=== PATIENT | male | born 1940 | race Caucasian/White ===

== ENCOUNTER 2018-04-01 01:19 | Outpatient (CLI) | payer MEDICARE, OTHER, SELFPAY ==
[2018-04-01 08:38] LABS: Anion Gap 7.8 mmol/L (3-11); BUN 24 mg/dL (7-18); CO2 30.2 mmol/L (21.0-32.0); CREATININE 1.67 mg/dL (0.70-1.30); Chloride 104 mmol/L (98-107); Glucose 98 mg/dL (70-100); Potassium 3.9 mmol/L (3.5-5.1); Sodium 142 mmol/L (136-145)
== END 2018-04-01 01:39 ==
PROVIDERS: PCP General Practice; Visit Provider General Practice
DX: I10 Essential (primary) hypertension (principal); Z13.1 Encounter for screening for diabetes mellitus
CPT/HCPCS: 36415; 80051; 82947; 84520; 82565

== ENCOUNTER 2018-09-15 10:51 | Outpatient (CLI) | payer MEDICARE, OTHER, SELFPAY ==
[2018-09-15 15:50] LABS: Glucose 101 mg/dL (70-100)
== END 2018-09-15 11:11 ==
PROVIDERS: PCP General Practice; Visit Provider General Practice
DX: R73.09 Other abnormal glucose (principal)
CPT/HCPCS: 36415; 82947

== ENCOUNTER 2019-02-23 17:24 | Outpatient (REF) | payer MEDICARE, OTHER, SELFPAY ==
[2019-02-23 19:00] LABS: HGB 15.4 g/dL (13.5-17.5); Mean Corp. HGB Concentration 32.8 g/dL (32.0-36.0); Mean Corpuscular Volume 94.6 fL (80-95); Mean Platelet Volume 10.8 fL (8.0-11.0); Platelet Count 234 x1000/uL (130-400); RBC 4.97 m/cumm (4.50-6.00); RBC Distribution Width 12.9 % (11.8-14.1)
[2019-02-23 19:15] LABS: COMMENT (LAB VIEW ONLY) 77.91 mg/dL; Microalb ug/mg Crea 49.7 ug/mg Cr
[2019-02-23 19:16] LABS: ALT 24 U/L (16-63); AST 17 U/L (15-37); Alkaline Phosphatase 60 U/L (46-116); Anion Gap 7.3 mmol/L (3-11); BUN 21 mg/dL (7-18); Bilirubin, Total 0.7 mg/dL (0.2-1.0); CO2 32.7 mmol/L (21.0-32.0); Calcium 9.6 mg/dL (8.5-10.1); Calculated LDL 103 mg/dL; Chloride 102 mmol/L (98-107); Cholesterol 182 mg/dL (<200); Estimated GFR 39.28 (mL/min/1.73m2); Glucose 86 mg/dL (74-106); HDL Cholesterol 47 mg/dL (40-60); Potassium 4.5 mmol/L (3.5-5.1); Sodium 142 mmol/L (136-145); Total Protein 7.5 g/dL (6.4-8.2); Triglyceride 161 mg/dL (<150)
[2019-02-23 19:20] LABS: Bilirubin Negative (Negative); Blood Negative (Negative); Clarity Clear (Clear); Glucose Negative (Negative); Ketones Negative (Negative); Leukocyte Esterase Negative (Negative); Nitrite Negative (Negative); Specific Gravity 1.015 (1.005-1.025); Urobilinogen 0.2 EU/dL (Up TO 0.2)
[2019-02-25 10:19] LABS: PSA, Screening 1.7 ng/mL (0.0-6.5)
== END 2019-02-23 17:44 ==
LOC: NCHCN 17:24
PROVIDERS: Visit Provider Nurse Practitioner Family
DX: I10 Essential (primary) hypertension (principal); Z12.5 Encounter for screening for malignant neoplasm of prostate
CPT/HCPCS: 80053; 80061; 84153; 85027; 81003; 82043; 82570

== ENCOUNTER 2019-03-04 09:24 | Outpatient (CLI) | payer MEDICARE, OTHER, SELFPAY ==
--- NOTE | 2019-03-04 15:37 | DI.US_ITS ---
EXAM: US RENAL CLINICAL HISTORY: HX NEPHROLITHIASIS Z87.442, CKD STAGE 3 N18.3 TECHNIQUE: Ultrasound performed using standard protocol. COMPARISON: RENAL COLIC WO CONTRAST from 10/20/2011 FINDINGS: Renal ultrasound performed according to the usual protocol. There are multiple bilateral renal cysts , the largest on the right measuring about 35 millimeters in diameter and the largest on the left areli suring about 36 millimeters in diameter. These appear to have been present on prior CT of 10/20/2011 . These are all simple cysts. No hydronephrosis or nephrolithiasis. Ureteral jets were noted bilaterally. Urinary bladder is unremarkable in appearance with pre and pos tvoid urinary bladder volume measurements 126 cc and 39 cc respectively. Prostatic volume is estimated at 40 cc. IMPRESSION: Multiple renal cysts noted bilaterally. No evidence of urinary tract obstruction.
== END 2019-03-04 09:44 ==
PROVIDERS: PCP Nurse Practitioner Family; Visit Provider Nurse Practitioner Family
DX: N18.3 Chronic kidney disease, stage 3 (moderate) (principal); N28.1 Cyst of kidney, acquired; Z87.442 Personal history of urinary calculi
CPT/HCPCS: 76770

== ENCOUNTER → 2019-04-02 11:25 | Outpatient (BNVA) | payer MEDICARE, OTHER, SELFPAY | PROVIDERS: PCP Nurse Practitioner Family; Visit Provider Physical Therapy Assistant | DX: Z12.11 Encounter for screening for malignant neoplasm of colon (principal); Z86.010 Personal history of colon polyps ==

== ENCOUNTER → 2019-12-23 12:58 | Outpatient (BNVA) | payer MEDICARE, OTHER, SELFPAY | PROVIDERS: PCP Nurse Practitioner Family; Referring Provider Nurse Practitioner Family; Visit Provider Physical Therapy Assistant | DX: Z12.11 Encounter for screening for malignant neoplasm of colon (principal); Z86.010 Personal history of colon polyps; R22.1 Localized swelling, mass and lump, neck; L98.9 Disorder of the skin and subcutaneous tissue, unspecified; I10 Essential (primary) hypertension ==

== ENCOUNTER 2020-01-05 02:02 | Outpatient (CLI) | payer MEDICARE, OTHER, SELFPAY ==
[2020-01-06 15:26] LABS: SARS-CoV-2 RNA Not Detected (NotDetected); SARS-CoV-2 RNA Source Nasal/Nares
== END 2020-01-05 02:22 ==
PROVIDERS: PCP Nurse Practitioner Family; Visit Provider Surgery
DX: Z11.59 Encounter for screening for other viral diseases (principal); Z01.818 Encounter for other preprocedural examination
CPT/HCPCS: U0003

== ENCOUNTER 2020-01-10 07:08 | Day surgery (SDC) | payer MEDICARE, OTHER, SELFPAY ==
--- NOTE | 2020-01-10 06:49 | W.COLOREPORT ---
Date of service: 01/10/20 Time of Service: 08:44 Colonoscopy Report Date of procedure: 01/10/20 Pre-op diagnosis general: Hx of polyps Post-op diagnosis procedure note: same (5 polyps and diverticulosis) Procedure: Colonoscopy with polypectomy Surgeon: Berenice Jasso Anesthesia proc note operative: other (General/ASA 2/Michael Cartagena CRNA) Estimated blood loss (mL): 5 Pathology: other (Transverse polyp, descending polyp, sigmoid polyp, rectal polyps x2) Complications: None Disposition: same day Indications: The patient is here for Colonoscopy pre-op. His last screening was in 2010, which was remarkable for tubular adenoma and hyperplastic polyps.He has no family history of colon cancer. He has not had any bowel habit changes. -Discussed colonoscopy bowel prep as well as the procedure. Discussed possible complications of the procedure to include bleeding, pain, perforation, missed small lesion/polyp, sore throat, aspiration and adverse reaction to the medications. Questions were answered to patient?s satisfaction. No guarantees were implied or given. Prep: Miralax/Dulcolax Procedure Start Time: 44 Procedure End Time: 09:18 Retraction Time: 25 minutes Findings: 5 polyps. One large pedunculate polyp removed with hot snare. The other 4 were small <10 cm and removed with cold forceps. Moderate Diverticulosis of the sigmoid colon Procedure Description: After informed consent was obtained the patient was taken to the procedure room and placed in a left decubitous position. Monitors were applied and a time out was done. The patients name, date of , procedure, allergies to medications and metal in their body was reviewed. The patient was then sedated. Once sedated and comfortable a rectal exam was done. External exam was normal. Internal exam revealed a normal sphincter tone and no palpable masses. The prostate felt smooth and slightly enlarged. The scope was then introduced and retro-flexed. No internal hemorrhoids were identified. The scope was then advanced to the cecum without difficulty. The ileocecal valve and appendiceal orifice were identified. The prep was adequate. The scope was then slowly retracted over 25 minutes back into the rectum. Polyps were removed with cold forceps in the transverse colon, descending colon, sigmoid colon and rectum with cold forceps. A >10 mm pedunculated polyp was removed in the rectum with hot snare. The polyp was at 4 cm. There was also moderate diverticulosis of the sigmoid colon. The scope was removed and the patient was woken up and taken back to Same day surgery in stable condition. The patient tolerated the procedure well and there were no immediate complications. Follow up: Follow up depends on final pathology
--- NOTE | 2020-01-10 06:50 | W.PM.DSUDISC ---
Discharge Plan Disposition Patient Disposition: HOME Condition: Good Discharge Details Reason For Visit: Hx of polyps Attending Provider: Berenice Jasso Primary Care Provider: Hans Anders Home Meds and New Rx's Prescriptions: Continued atenolol 50 mg tablet 50 mg PO DAILY RF: 0 allopurinol 100 mg tablet 100 mg PO DAILY RF: 0 hydrochlorothiazide 25 mg tablet 25 mg PO DAILY RF: 0 pravastatin 20 mg tablet 20 mg PO DAILY RF: 0 fluticasone propionate 110 mcg/actuation HFA aerosol inhaler 1 puff IH BID RF: 0 lisinopril 5 mg tablet 5 mg PO DAILY RF: 0 doxazosin [Cardura] 2 mg tablet 4 mg PO QHS RF: 0 albuterol sulfate [ProAir HFA] 90 mcg/actuation HFA aerosol inhaler 2 puff IH Q6H PRNRF: 0 potassium chloride 10 mEq capsule, extended release 10 meq PO QHS RF: 0 Discontinued polyethylene glycol 3350 17 gram/dose powder 238 g PO ONCE Qty: 238 RF: 0 bisacodyl [Dulcolax (bisacodyl)] 5 mg tablet,delayed release (DR/EC) 5 mg PO ONCE Qty: 4 RF: 0 Discharge Instructions Instructions: Colorectal Polyps (DC), Diverticulosis (DC) Additional Instructions: Findings: 5 polyps diverticulosis Follow up: Depends on the pathology results Please call if you develop: fevers >101.5 Nausea or Vomiting Abdominal pain that is not transient DAY SURGERY UNIT POST ENDOSCOPY INSTRUCTIONS 1. Because there will be medication in your system for the next 24 hours, you may feel a little sleepy. Your coordination will be affected. Therefore: a. Do not drive or operate dangerous equipment for 24 hours. b. Do not drink alcohol beverages for 24 hours (not even beer). c. Plan to go home and rest for the day. 2. Generally there are no restrictions on your activity after a day or so has gone by, but you may feel a bit fatigued for a few days. 3 After you arrive home you may have a light meal and return to a normal diet as you can tolerate it without feeling sick to your stomach. 4. After surgery, you may feel pain or discomfort. This should be only transient, but if it persists please contact your doctor. 5. If there are any questions regarding the findings of your procedure, please feel free to contact your doctor. 6. If you are unable to contact your doctor with a problem, contact the hospital at [phone]. 7. Continue all your regular medications unless directed otherwise. I understand the above instructions and have no questions. Signature of Patient or Responsible Adult Escort Date/Time Name of Responsible Adult Escort Signature of Nurse Date/Time Activity:: Activity as Tolerated Diet:: High Fiber diet Discharge Orders Discharge Orders: Discharge Order (Routine); Ordered 01/10/20 Ordered By: Berenice Jasso
[2020-01-10 07:15] VITALS: BP 146/76; PULSE 66; RESP 17; TEMP 36.8; O2SAT 98
[2020-01-10] MEDS: Lactated Ringers 1,000 ML 80 ML IV (07:50)
--- NOTE | 2020-01-10 08:57 | BOWEL_PTH ---
PATIENT: Dany Hearn LOC: [facility] U#:[id number] AGE/SX: 79/M ROOM: RE01/10/[address]: Berenice Jasso MD : 1940 BED: DIS: 01/10/2020 SPEC #: [id number] RECD: 01/10/20 12:39 STATUS: DAMION REQ #: [id number] LUIS EDUARDO: 01/10/20 08:[address]: Berenice Jasso DEPT: Surgical Specimen RECD BY: Bhumika Rajput ENTERED: 01/10/20 12:41 SP TYPE: Bowel OTHR DR: Hans Anders Tissues: 1 - BIOPSY BOWEL 2 - BIOPSY BOWEL 3 - BIOPSY BOWEL 4 - BIOPSY BOWEL 5 - BIOPSY BOWEL Procedures: GROSS AND MICRO LEVEL 4 Comments: [id number]
[2020-01-10 10:22] VITALS: BP 139/78; PULSE 60; RESP 17; TEMP 36.4; O2SAT 94
== END 2020-01-10 10:53 | disposition home or self-care (01) ==
LOC: SUR 07:09
PROVIDERS: PCP Nurse Practitioner Family; Visit Provider Surgery
PROC: 0DJD8ZZ Inspection of Lower Intestinal Tract, Via Natural or Artificial Opening Endoscopic (ICD-10-PCS; CPT 45378; principal; 2020-01-10 08:15)
DX: Z12.11 Encounter for screening for malignant neoplasm of colon (principal); D12.8 Benign neoplasm of rectum; D12.3 Benign neoplasm of transverse colon; K62.1 Rectal polyp; K63.5 Polyp of colon; K57.30 Diverticulosis of large intestine without perforation or abscess without bleeding; Z86.010 Personal history of colon polyps; I10 Essential (primary) hypertension; J45.909 Unspecified asthma, uncomplicated
CPT/HCPCS: 45385; 45380; 88305; J2001

== ENCOUNTER 2020-03-10 16:34 | Outpatient (REF) | payer MEDICARE, OTHER, SELFPAY ==
[2020-03-10 18:40] LABS: HGB 15.2 g/dL (13.5-17.5); MCH 31.7 pg (27.0-33.0); MCV 95.8 fL (80-95); MPV 10.8 fL (8.0-11.0); Platelet Count 230 10^3/uL (130-400); RDW 12.2 % (11.8-14.1); RDW-SD 43.5 fL; WBC 8.69 10^3/uL (4.4-10.8)
[2020-03-13 05:12] LABS: Vitamin D 25 Total 33.7 ng/ml (30-100)
== END 2020-03-10 16:54 ==
LOC: NCHCN 16:34
PROVIDERS: PCP Nurse Practitioner Family; Visit Provider Nurse Practitioner Family
DX: I10 Essential (primary) hypertension (principal); N18.30 Chronic kidney disease, stage 3 unspecified; L29.9 Pruritus, unspecified
CPT/HCPCS: 82306; 85027

== ENCOUNTER 2020-09-04 13:43 | Outpatient (REF) | payer MEDICARE, SELFPAY ==
[2020-09-04 16:08] LABS: BUN 20 mg/dL (7-18); CREATININE 1.7 mg/dL (0.70-1.30); Calcium 9.3 mg/dL (8.5-10.1); Estimated GFR 39.18 (mL/min/1.73m2); Glucose 115 mg/dL (74-106)
[2020-09-04 16:09] LABS: Anion Gap 4.5 mmol/L (3-11); CO2 30.5 mmol/L (21.0-32.0); Chloride 105 mmol/L (98-107); Potassium 4.1 mmol/L (3.5-5.1); Sodium 140 mmol/L (136-145)
== END 2020-09-04 13:44 | disposition home or self-care (01) ==
LOC: NCHCN 13:43
PROVIDERS: PCP Nurse Practitioner Family; Visit Provider Physician Assistant
DX: N18.30 Chronic kidney disease, stage 3 unspecified (principal)
CPT/HCPCS: 80048

== ENCOUNTER → 2020-09-11 | Outpatient (CLI) | payer MEDICARE, OTHER, SELFPAY ==
--- NOTE | 2020-09-11 13:56 | DI.US_ITS ---
APPROVED REPORT EXAM: Comprehensive 2D, Doppler, and color-flow Echocardiogram Patient Location: Out-Patient Kaitara Taraka: Jalyn Medley RDCS (AE) Indications: Heart Murmur Other Information Study Quality: Adequate Conclusion Left Ventricle : The left ventricle is normal size. The left ventricular ejection fraction is within the normal range. There is normal left ventricular wall thickness. There is normal LV segmental wall motion. The left ventricular diastolic function is normal. LVEF is 60%. Right Ventricle : The right ventricle is normal size. The right ventricular systolic function is norm al. The RVSP is 25.5mmHg. Atria : The left atrium size is normal. The right atrium size is normal. Aortic Valve : The aortic valve is normal in structure. Aortic valve is trileaflet. Mild aortic regur gitation. There is no aortic valvular stenosis. Great Vessels : The aortic root is normal in size. The ascending aorta is normal in size. Aortic arch is not well visualized. IVC is normal in size and collapses >50% with inspiration. Please see remainder of study for further details. Wall motion Left Ventricle The left ventricle is normal size. The left ventricular ejection fraction is within the normal range. There is normal left ventricular wall thickness. There is normal LV segmental wall motion. The left ventricular diastolic function is normal. There is no ventricular septal defect visualized. LVEF is 6 0%. Right Ventricle The right ventricle is normal size. The right ventricular systolic function is normal. The RVSP is 25 .5mmHg. Atria The left atrium size is normal. The right atrium size is normal. The interatrial septum is intact wit h no evidence for an atrial septal defect. Aortic Valve The aortic valve is normal in structure. Aortic valve is trileaflet. There is no aortic valvular sten osis. Mild aortic regurgitation. Mitral Valve Mild mitral annular calcification. No evidence of mitral valve stenosis. Trace mitral regurgitation. Tricuspid Valve The tricuspid valve is normal in structure. There is no tricuspid valve stenosis. Trace tricuspid reg urgitation. Pulmonic Valve The pulmonary valve is normal in structure. There is no pulmonic valvular stenosis. Trace pulmonic re gurgitation. Great Vessels The aortic root is normal in size. The ascending aorta is normal in size. Aortic arch is not well vis ualized. IVC is normal in size and collapses >50% with inspiration. Pericardium There is no pericardial effusion. 2D Dimensions IVSD d PLAX 0.87 cm M: 0.6-1.2 LV Vol A2C d MOD 94.3 mL LVPW d PLAX 0.86 cm M: 0.6 - 1.2 LV Vol A4C d MOD 90.9 mL LVID d PLAX 4.32 cm M: 4.2 - 5.8 LA vol/ BSA A2C s A-L 18.1 mL/m2 LVDs 2.80 cm M: 2.5 - 4.0 LA vol/ BSA A4C s A-L 13.7 mL/m2 Ao Root d 3.04 cm M: 3.1 - 3.7 LA Vol/ BSA Biplane s A-L 16.2 mL/m2 RA Area A4C 11.79 cm2 LA Area A4C s MOD 11.92 cm2 RA Vol/ BSA A4C s A-L 13.8 mL/m2 LA Area A2C s MOD 14.05 cm2 Ao Asc Diam d 3.45 cm M: 2.6 - 3.4 LV EF A4C MOD 61.4 % LV EF Teichholz 63.8 % LV EF A2C MOD 60.6 % LVEF (Rey's) 60.04 % M: 52 - 72 LV EF Biplane MOD 60.0 % LV Volume 71.14 mL M: 62 - 150 SV 56.49 mL LV Volume Index 36.48 mL/m2 M: 34 - 74 SV Index 28.93 mL/m2 LV Vol Biplane MOD 94.1 mL FS 34.40 % M-Mode TAPSE 3.16 cm (M/F) >1.7 LV Diastology MV E' medial 0.114 (>0.07 m/s) E/A Ratio 1.0 LV E/e MED 7.00 (<14) MV E Vmax 0.80 (0.4-1.3 m/s) MV E' lateral 0.076 (>0.1 m/s) MV A Vmax 0.80 (0.4-1.3 m/s) LV E/e LAT 10.55 (<14) MV E/A Ratio 0.95 MV E/E' medial 7.04 MV E/E' lateral 10.56 Aortic Valve LVOT Area 3.12 cm2 AoV Area Vmax 2.36 cm2 LVOT Vmax 1.05 m/s AoV Area/ BSA (Vmax) 1.21 cm2/m2 LVOT Mean Thomas. 0.66 m/s DUSTY Mean Thomas. 2.17 cm2 LVOT Peak Grad 4.4 mmHg DUSTY Mean Thomas. Index 1.11 cm2/m2 LVOT Mean Grad 2.1 mmHg AR DT 2136 msec LVOT VTI 0.222 m AR PHT 619 msec LVOT Diam s 1.95 cm AoV Vmax 1.39 m/s Velocity Ratio 0.75 AoV Mean Thomas. 0.95 m/s AoV Peak Grad 7.7 mmHg LVOT SV 69.37 mL AoV Mean Grad 4.4 mmHg AoV VTI 0.264 m AoV Area VTI 2.63 cm2 AoV Area/ BSA (VTI) 1.35 cm/m2 Mitral Valve MV DT 201 (160-240 msec) MV PHT 58 msec MV Area PHT 3.77 cm2 MV VTI 0.322 m MV Area VTI 2.15 (4.0-6.0 cm2) Pulmonary Valve PV Vmax 1.25 (0.5-1.5 m/s) RVOT Peak Gr. 2.48 mmHg PV Peak Grad 6.2 mmHg RVOT Mean Gr. 1.15 mmHg PV Mean Grad 3.0 mmHg RVOT VTI 0.178 m PV VTI 0.256 m RVOT Vmax 0.79 m/s Tricuspid Valve TR Peak Grad 22.4 mmHg TR Vmax 2.37 m/s RA Pressure 3.00 mmHg RVSP (TR) 25.5 mmHg
== END ==
PROVIDERS: PCP Nurse Practitioner Family; Visit Provider Physician Assistant
DX: R01.1 Cardiac murmur, unspecified (principal); I35.1 Nonrheumatic aortic (valve) insufficiency
CPT/HCPCS: 93306

== ENCOUNTER 2020-09-19 01:30 | Outpatient (CLI) | payer MEDICARE, SELFPAY ==
--- NOTE | 2020-09-19 | DI.US_ITS ---
Exam(s) US AAA SCREENING EXAM: US AAA SCREENING CLINICAL HISTORY: SCREENING FOR AAA,CARDIOVASCULAR,Z13.6 COMPARISON: No exams were available for comparison FINDINGS: Abdominal Aorta: Maximal diameter 2.9 cm. Iliacs: Right: 1 x 1 cm Left: 1 x 1 cm IMPRESSION: No evidence of abdominal aortic aneurysm. DATA REPOSITORY:
== END 2020-09-19 01:50 ==
PROVIDERS: PCP Nurse Practitioner Family; Visit Provider Physician Assistant
DX: Z13.6 Encounter for screening for cardiovascular disorders (principal)
CPT/HCPCS: 76706

== ENCOUNTER → 2020-11-16 12:48 | Outpatient (BNVA) | payer MEDICARE, SELFPAY | PROVIDERS: PCP Nurse Practitioner Family; Referring Provider Nurse Practitioner Family; Visit Provider Physical Therapy Assistant | DX: Z12.11 Encounter for screening for malignant neoplasm of colon (principal); I12.9 Hypertensive chronic kidney disease with stage 1 through stage 4 chronic kidney disease, or unspecified chronic kidney disease; N18.9 Chronic kidney disease, unspecified; Z86.010 Personal history of colon polyps ==

== ENCOUNTER 2020-12-01 01:44 | Outpatient (CLI) | payer MEDICARE, OTHER, SELFPAY ==
[2020-12-01 16:19] LABS: Source Nasal/Nares
[2020-12-01 21:58] LABS: COVID-19 PCR Negative (Negative)
== END 2020-12-01 01:45 | disposition home or self-care (01) ==
LOC: LBO 01:45
PROVIDERS: PCP Physician Assistant; Visit Provider Surgery
DX: Z20.822 Contact with and (suspected) exposure to COVID-19 (principal); Z01.818 Encounter for other preprocedural examination
CPT/HCPCS: 87635

== ENCOUNTER 2020-12-04 07:07 | Day surgery (SDC) | payer MEDICARE, OTHER, SELFPAY ==
--- NOTE | 2020-12-04 06:37 | COLE_ITS ---
Colonoscopy Report Date of procedure: 12/04/20 Pre-op diagnosis general: Hx of polyps with High Grade dysplacia Post-op diagnosis procedure note: other (polyps and diverticulosis) Procedure: Colonoscopy with polypectomy Surgeon: Berenice Jasso Anesthesia Type: General:No Airway (Jennifer Vaca,MEENU/ Nikkie curtis CRNA) Estimated blood loss (mL): 3 Pathology: other (Transverse, descending, sigmoid x4 and rectal polyps x4) Complications: None Disposition: same day Indications: The patient is here for Colonoscopy pre-op. His last screening was in 2019, which was remarkable for sessile serrated polyp and tubular adenomatous polyp with high grade dysplasia He has no family history of colon cancer. He has not had any bowel habit changes. -Discussed colonoscopy bowel prep as well as the procedure. Discussed possible complications of the procedure to include bleeding, pain, perforation, missed small lesion/polyp, sore throat, aspiration and adverse reaction to the medications. Questions were answered to patient?s satisfaction. No guarantees were implied or given. Prep: Miralax/Dulcolax Procedure Start Time: 08:24 Procedure End Time: 08:57 Retraction Time: 22 minutes Findings: multiple small sessile polyps, most likely benign Moderate diverticulosis Procedure Description: After informed consent was obtained the patient was taken to the procedure room and placed in a left decubitous position. Monitors were applied and a time out was done. The patients name, date of , procedure, allergies to medications and metal in their body was reviewed. The patient was then sedated. Once sedated and comfortable a rectal exam was done. External exam was normal. Internal exam revealed a normal sphincter tone and no palpable masses. The prostate felt smooth. The scope was then introduced and retro-flexed. No internal hemorrhoids, polyps or masses were identified on retro-flexion. The scope was then advanced to the cecum without difficulty. The ileocecal vlave and appendiceal orifice were identified. The prep was good. The scope was then slowly retracted over 22 minutes back into the rectum. Polyps were removed with cold forceps in the Transverse colon, descending colon, sigmoid colon x4 and rectum x3. . There was moderate descending and sigmoid diverticulosis noted. The scope was removed and the patient was woken up and taken back to Same day surgery in stable condition. The patient tolerated the procedure well and there were no immediate compl ications. Follow up: The patient should follow up in 3 years unless they develop changes in bowel habits or other new gastrointestinal complaints.
--- NOTE | 2020-12-04 06:38 | W.PM.DSUDISC ---
Discharge Plan Disposition Patient Disposition: HOME Condition: Good Discharge Details Reason For Visit: Colonoscopy Attending Provider: Berenice Jasso Primary Care Provider: Guido Woods Home Meds and New Rx's Prescriptions: Continued allopurinol 100 mg tablet 100 mg PO DAILY RF: 0 hydrochlorothiazide 25 mg tablet 25 mg PO DAILY RF: 0 pravastatin 20 mg tablet 20 mg PO HS RF: 0 fluticasone propionate 110 mcg/actuation HFA aerosol inhaler 1 puff IH BID RF: 0 lisinopril 5 mg tablet 5 mg PO DAILY RF: 0 doxazosin [Cardura] 2 mg tablet 4 mg PO QHS RF: 0 potassium chloride 10 mEq capsule, extended release 10 meq PO QHS RF: 0 saw palmetto 450 mg capsule 900 mg PO DAILY RF: 0 atenolol 50 mg tablet 50 mg PO DAILY RF: 0 lidocaine HCl [Lidocaine Plus] 4 % Cream 1 applic TOPICAL BID PRNRF: 0 Discontinued polyethylene glycol 3350 17 gram/dose powder 238 g PO ONCE Qty: 238 RF: 0 bisacodyl [Dulcolax (bisacodyl)] 5 mg tablet,delayed release (DR/EC) 5 mg PO ONCE Qty: 4 RF: 0 Discharge Instructions Instructions: Diverticulosis (DC) Additional Instructions: Findings: multiple small sessile polyps Diverticulosis Follow up: 3 years Please call if you develop: fevers >101.5 Nausea or Vomiting Abdominal pain that is not transient Rectal bleeding that is more then a tbsp A hard abdomen and inability to pass gas DAY SURGERY UNIT POST ENDOSCOPY INSTRUCTIONS Instructions for everyone who is given Anesthesia: For your safety, please do the following for the next 24 Hours: a. Do not drive or operate dangerous equipment b. Do not drink alcohol beverages or use any recreational drugs for the first 24 hours or while taking pain medications. The medications in your body may have a reaction that can be dangerous. c. Do not make any important decisions or sign any important papers 1. Generally there are no restrictions on your activity after a day or so has gone by, but you may feel a bit fatigued for a few days. 2. After you arrive home you may have a light meal and return to a normal diet as you can tolerate it without feeling sick to your stomach. 3. After surgery, you may feel pain or discomfort. This should be only transient, but if it persists please contact your doctor. 4. If there are any questions regarding the findings of your procedure, please feel free to contact your doctor. 6. If you are unable to contact your doctor with a problem, contact the hospital at [phone]. 7. Continue all your regular medications unless directed otherwise. I understand the above instructions and have no questions. Signature of Patient or Responsible Adult Escort Date/Time Name of Responsible Adult Escort Signature of Nurse Date/Time Activity:: Activity as Tolerated Diet:: As Tolerated Discharge Orders Discharge Orders: Discharge Order (Routine); Ordered 12/04/20 Ordered By: Berenice Jasso
[2020-12-04 07:42] VITALS: BP 139/67; PULSE 59; RESP 16; TEMP 36.6; O2SAT 98
[2020-12-04] MEDS: Lactated Ringers 1,000 ML 80 ML IV (07:55)
--- NOTE | 2020-12-04 08:10 | W.ANESPRE ---
General Info Date of Service Date Performed: 12/04/20 Height: 5 ft 9 in Weight: 80.1 kg Body Mass Index (BMI): 26.0 Surgical Procedure: Operation Date: 12/04/20 08:20 Proposed Procedures Side Surgeon p Colonoscopy Berenice Jasso MD Meds Allergies and Home Medications Allergies Allergy/AdvReac Type Severity Reaction Status Date / Time No Known Allergies Allergy Verified 12/04/20 07:34 Home Medication Medication Instructions Recorded doxazosin 2 mg tablet 4 mg PO QHS tab 03/11/19 fluticasone propionate 110 1 puff IH BID 03/11/19 mcg/actuation HFA aerosol inhaler lisinopril 5 mg tablet 5 mg PO DAILY 03/11/19 allopurinol 100 mg tablet 100 mg PO DAILY 04/02/19 hydrochlorothiazide 25 mg tablet 25 mg PO DAILY 04/02/19 pravastatin 20 mg tablet 20 mg PO HS 04/02/19 potassium chloride 10 mEq 10 meq PO QHS cap 12/23/19 capsule,extended release atenolol 50 mg tablet 50 mg PO DAILY 06/27/20 saw palmetto 450 mg capsule 900 mg PO DAILY cap 06/27/20 bisacodyl 5 mg tablet,delayed 5 mg PO ONCE #4 tab 11/20/20 release polyethylene glycol 3350 17 238 g PO ONCE #238 g 11/20/20 gram/dose oral powder lidocaine HCl [Lidocaine Plus] 1 applic TOPICAL BID PRN 12/04/20 Current Visit Medications: Current Medications Generic Name Dose Route Start Last Admin Trade Name Freq PRN Reason Stop Dose Admin Hyoscyamine Sulfate 0.125 mg 12/04/20 06:39 Hyoscyamine 0.125 Mg Sl/Oral/Chew SL DIRECTED PRN Ringer's Solution 1,000 mls @ 80 mls/hr 12/04/20 06:00 12/04/20 07:55 IV 12/31/20 23:59 80 mls/hr INFUSION KAMLESH Administration IV Miscellaneous Supplies 1 each 12/04/20 06:00 Iv Access IV 12/31/20 23:59 DIRECTED KAMLESH Ondansetron HCl 4 mg 12/04/20 06:39 Ondansetron 4 Mg/2 Ml Vial IVP Q4H PRN PRN Nausea / Vomiting Sodium Chloride 0 ml 12/04/20 06:00 Normal Saline Flush 10 Ml Syr IV 12/31/20 23:59 PRN PRN Sodium Chloride 0 ml 12/04/20 06:00 Normal Saline 10 Ml Vial IJ 12/31/20 23:59 DIRECTED PRN Sterile Water 0 ml 12/04/20 06:00 Water,Injection,Sterile 10 Ml Vial IJ 12/31/20 23:59 DIRECTED PRN PFSH Active Problems Active Problems: Problem Status Onset Code Neck mass R22.1 Hyperplastic colon polyp K63.5 Sessile colonic polyp K63.5 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 Itching L29.9 CKD (chronic kidney disease) stage 3, GFR 30-59 ml/min N18.30 Screening for colon cancer Z12.11 Medical History Medical History Adenomatous colon polyp Asthma, chronic Degenerative joint disease Gout History of dog bite History of nephrolithiasis Hyperlipidemia Hypertension Nephrolithiasis Surgical History Surgical History (Updated 12/04/20 @ 07:34 by Indira Penn) Hx of colonoscopy Tobacco Smoking/Tobacco Use Status: Former Tobacco Use Alcohol Alcohol Intake: current Alcohol intake frequency: holidays/special occasions only Substance Use Substance use type: does not use Vital Signs and Lab Results Vital Signs Most Recent Vital Signs in EMR: Most Recent Vital Signs Temp Pulse Resp BP Pulse Ox 36.6 C 59 L 16 139/67 98 12/04/20 07:42 12/04/20 07:42 12/04/20 07:42 12/04/20 07:42 12/04/20 07:42 Lab Results Blood Type / Crossmatch: No Data to Display Complete Blood Count: No Data to Display Complete Metabolic Panel: No Data to Display Liver Function Panel: No Data to Display Coagulation Panel: No Data to Display Cardiac Panel: No Data to Display Arterial Blood Gas: No Data to Display Venous Blood Gas: No Data to Display Pancreas Panel: No Data to Display Thyroid Panel: No Data to Display Infectious Disease: Coronavirus (COVID-19)(PCR) Negative (Negative) 12/01/20 10:33 12/01/20 Coronavirus 2019 Source Nasal/Nares 12/01/20 10:33 12/01/20 Blood Cultures: No Data to Display Toxicology Panel: No Data to Display Imaging and Studies Imaging and Studies Echocardiogram Summary: Conclusion Left Ventricle : The left ventricle is normal size. The left ventricular ejection fraction is within the normal range. There is normal left ventricular wall thickness. There is normal LV segmental wall motion. The left ventricular diastolic function is normal. LVEF is 60%. Right Ventricle : The right ventricle is normal size. The right ventricular systolic function is normal. The RVSP is 25.5mmHg. Atria : The left atrium size is normal. The right atrium size is normal. Aortic Valve : The aortic valve is normal in structure. Aortic valve is trileaflet. Mild aortic regurgitation. There is no aortic valvular stenosis. Great Vessels : The aortic root is normal in size. The ascending aorta is normal in size. Aortic arch is not well visualized. IVC is normal in size and collapses >50% with inspiration. Please see remainder of study for further details. 09/11/20 Anesthesia Assessment and Plan Anesthesia History Personal History: No History of Anesthesia Complications Family History: No Family History of Anesthesia Complications Exercise Tolerance Exercise Tolerance: Metabolic Equivalents>4 Pertinent Negatives Pertinent Negatives: No Symptoms of GERD, No Major Cardiovascular Symptoms or Complaints, No Major Pulmonary Symptoms or Complaints and No History of CVA/TIA Cardiac & Pulmonary Exam Cardiac Exam: Normal S1/S2 Heart Sounds Pulmonary Exam: Clear Bilateral Breath Sounds Airway Exam Known Difficult Airway: No Mallampati Class: 2 Mouth Opening: Normal (> 3cm) Thyromental Distance: Greater than 3 cm Neck Range of Motion: Full ROM Neck Circumference: Normal Teeth Condition: Normal Dentition ASA Classification ASA Score: ASA 2 Emergency Case?: No NPO Status NPO Status: NPO Clears >2 hours, Solids >8 hours Anesthesia Plan Resuscitation Status: Full Code Anesthesia Technique: General Anesthesia Airway Planned: Natural Airway Monitors Used: Standard Monitors
[2020-12-04 08:12] VITALS: BMI 26.0
--- NOTE | 2020-12-04 08:40 | BOWEL_PTH ---
PATIENT: Dnay Hearn LOC: [facility] U#:[id number] AGE/SX: 80/M ROOM: RE12/04/[address]: Berenice Jasso MD : 1940 BED: DIS: 12/04/2020 SPEC #: [id number] RECD: 12/04/20 12:51 STATUS: DAMION REQ #: [id number] LUIS EDUARDO: 12/04/20 08:[address]: Berenice Jasso DEPT: Surgical Specimen RECD BY: Bhumika Rajput ENTERED: 12/04/20 12:52 SP TYPE: Bowel OTHR DR: Guido Woods Tissues: 1 - BIOPSY BOWEL 2 - BIOPSY BOWEL 3 - BIOPSY BOWEL 4 - BIOPSY BOWEL Procedures: GROSS AND MICRO LEVEL 4 Comments: [id number]
[2020-12-04 09:08] VITALS: BP 132/73; PULSE 63; RESP 18; TEMP 36.6; O2SAT 99
[2020-12-04 09:32] VITALS: BP 140/70; PULSE 57; RESP 16; TEMP 36.5; O2SAT 96
--- NOTE | 2020-12-04 10:30 | W.ANESPOSTOP ---
Postoperative Evaluation Date, Time and Location Date Performed: 12/04/20 Time Performed: 09:45 Patient Location: Day Surgery Unit Vital Signs Most Recent Imported Vital Signs: Most Recent Vital Signs Temp Pulse Resp BP Pulse Ox 36.5 C 57 L 16 140/70 96 12/04/20 09:32 12/04/20 09:32 12/04/20 09:32 12/04/20 09:32 12/04/20 09:32 Pain Score Most Recent Pain Score: Most Recent Pain Score Pain Level 0 12/04/20 09:32 Assessment Mental Status: Awake (Alert & Oriented to Patient Baseline) Airway and Respiratory Function: Patent airway with normal (patient baseline) respiratory exam Cardiovascular Function: Hemodynamically Stable Hydration Status: Adequately Hydrated Nausea & Vomiting: No Nausea or Vomiting Pain: Pt. Denies Any Pain Peripheral Nerve Block: Patient did not receive a nerve block
== END 2020-12-04 10:08 | disposition home or self-care (01) ==
LOC: SUR 07:07
PROVIDERS: PCP Physician Assistant; Visit Provider Surgery
PROC: 0DJD8ZZ Inspection of Lower Intestinal Tract, Via Natural or Artificial Opening Endoscopic (ICD-10-PCS; CPT 45378; principal; 2020-12-04 08:15)
DX: Z12.11 Encounter for screening for malignant neoplasm of colon (principal); D12.3 Benign neoplasm of transverse colon; K57.30 Diverticulosis of large intestine without perforation or abscess without bleeding; N18.9 Chronic kidney disease, unspecified; I12.9 Hypertensive chronic kidney disease with stage 1 through stage 4 chronic kidney disease, or unspecified chronic kidney disease; Z86.010 Personal history of colon polyps; K63.5 Polyp of colon; K62.1 Rectal polyp
CPT/HCPCS: 45380; 88305; J2001

== ENCOUNTER 2021-07-26 18:10 | Outpatient (REF) | payer MEDICARE, OTHER, SELFPAY ==
[2021-07-26 15:53] LABS: BUN 25 mg/dL (7-18); CREATININE 1.7 mg/dL (0.70-1.30); Calcium 9.4 mg/dL (8.5-10.1); Cholesterol 141 mg/dL (<200); Estimated GFR 39.07 (mL/min/1.73m2); Glucose 109 mg/dL (74-106); HDL Cholesterol 46 mg/dL (40-60); Triglyceride 88 mg/dL (<150)
[2021-07-26 15:54] LABS: Anion Gap 9.2 mmol/L (3-11); CO2 27.8 mmol/L (21.0-32.0); Calculated LDL 78 mg/dL (<100); Chloride 103 mmol/L (98-107); Potassium 3.5 mmol/L (3.5-5.1); Sodium 140 mmol/L (136-145)
== END 2021-07-26 18:11 | disposition home or self-care (01) ==
LOC: NCHCN 18:10
PROVIDERS: PCP Physician Assistant; Visit Provider Physician Assistant
DX: I10 Essential (primary) hypertension (principal)
CPT/HCPCS: 80048; 80061

== ENCOUNTER 2021-11-15 10:38 | Outpatient (CLI) | payer MEDICARE, OTHER, SELFPAY ==
--- NOTE | 2021-11-15 09:45 | DI.RAD_ITS ---
Exam(s) XR FINGER LT RING EXAM: XR FINGER LT RING CLINICAL HISTORY: left ring finger trigger finger and pain TECHNIQUE: COMPARISON: No exams were available for comparison FINDINGS: Three views were obtained. No bony or soft tissue abnormality seen. IMPRESSION: RADIATION DOSE DELIVERED: Total DLP
== END 2021-11-15 10:39 | disposition home or self-care (01) ==
LOC: DIORS 10:39
PROVIDERS: PCP Physician Assistant; Referring Provider Physician Assistant; Visit Provider Student in an Organized Health Care Education/Training Program
DX: M65.342 Trigger finger, left ring finger (principal)
CPT/HCPCS: 20550; 99214; 73140; J1030

== ENCOUNTER 2021-11-20 09:53 | Day surgery (SDC) | payer MEDICARE, OTHER, SELFPAY ==
--- NOTE | 2021-11-20 07:33 | W.PM.DSUDISC ---
Discharge Plan Disposition Patient Disposition: HOME Condition: Good Discharge Details Reason For Visit: Left Ring Finger trigger finger Attending Provider: Jeovanny Kitchen Primary Care Provider: Guido Woods Home Meds and New Rx's Prescriptions: Continued allopurinol 100 mg tablet 100 mg PO DAILY hydrochlorothiazide 25 mg tablet 25 mg PO DAILY pravastatin 20 mg tablet 20 mg PO HS lisinopril 5 mg tablet 5 mg PO DAILY doxazosin [Cardura] 2 mg tablet 4 mg PO QHS saw palmetto 450 mg capsule 900 mg PO DAILY Rx Instructions: give with food (meal/snack) atenolol 50 mg tablet 50 mg PO DAILY lidocaine HCl [Lidocaine Plus] 4 % Cream 1 applic TOPICAL BID PRN Label Comments: 12/04/20 Recent dog attack; applying lidocaine for back pain. Discharge Instructions Stand Alone Forms: Imtiaz Lombardo Finger Release Referrals: Jeovanny Kitchen MD [ [facility] STAFF PHYSICIAN] - Activity:: Activity as Tolerated Remove Dressings/Wound Care:: 72 hours Shower/Bathe:: 72 hours Diet:: As Tolerated Discharge Orders Discharge Orders: Discharge Order (Routine); Ordered 11/20/21 Ordered By: Christiane Stokes DS: Diagnosis Discharge Diagnosis (1) Trigger finger, left ring finger: Status: Acute
[2021-11-20 10:32] VITALS: BP 152/76; PULSE 63; RESP 16; TEMP 36.5; O2SAT 97
[2021-11-20] MEDS: Lactated Ringers 1,000 ML 80 ML IV (11:25)
--- NOTE | 2021-11-20 11:52 | W.ANESPRE ---
General Info Date of Service Date Performed: 11/20/21 Height: 5 ft 9 in Weight: 79 kg Body Mass Index (BMI): 25.7 Surgical Procedure: Operation Date: 11/20/21 13:25 Proposed Procedure Side Surgeon p Hand Trigger Finger left ring finger Left Jeovanny Kitchen MD Meds Allergies and Home Medications Allergies Allergy/AdvReac Type Severity Reaction Status Date / Time No Known Allergies Allergy Verified 11/20/21 10:26 Home Medication Medication Instructions Recorded doxazosin 2 mg tablet (Cardura) 4 mg PO QHS 03/11/19 lisinopril 5 mg tablet 5 mg PO DAILY 03/11/19 allopurinol 100 mg tablet 100 mg PO DAILY 04/02/19 hydrochlorothiazide 25 mg tablet 25 mg PO DAILY 04/02/19 pravastatin 20 mg tablet 20 mg PO HS 04/02/19 atenolol 50 mg tablet 50 mg PO DAILY 06/27/20 saw palmetto 450 mg capsule 900 mg PO DAILY 06/27/20 lidocaine HCl 4 % topical cream 1 applic topical BID PRN 12/04/20 (Lidocaine Plus) Current Visit Medications: Current Medications Generic Name Dose Route Start Last Admin Trade Name Freq PRN Reason Stop Dose Admin Acetaminophen 650 mg 11/20/21 07:32 Acetaminophen 325 Mg Tab PO Q4H PRN PRN Ringer's Solution 1,000 mls @ 80 mls/hr 11/20/21 06:00 11/20/21 11:25 IV 12/19/21 23:59 80 mls/hr INFUSION KAMLESH Administration Ondansetron HCl 4 mg/ Sodium 52 mls @ 200 mls/hr 11/20/21 07:32 Chloride IVPB Q6H PRN PRN IV Miscellaneous Supplies 1 each 11/20/21 06:00 Iv Access IV 12/19/21 23:59 DIRECTED KAMLESH Oxycodone HCl 5 mg 11/20/21 07:32 Oxycodone 5 Mg Tab PO Q3H PRN PRN Pain Sodium Chloride 0 ml 11/20/21 06:00 Normal Saline Flush 10 Ml Syr IV 12/19/21 23:59 PRN PRN Sodium Chloride 0 ml 11/20/21 06:00 Normal Saline 10 Ml Vial IJ 12/19/21 23:59 DIRECTED PRN Sterile Water 0 ml 11/20/21 06:00 Water,Injection,Sterile 10 Ml Vial IJ 12/19/21 23:59 DIRECTED PRN PFSH Active Problems Active Problems: Problem Status Onset Code Trigger finger, left ring finger M65.342 Neck mass R22.1 Hyperplastic colon polyp ~11/2020 K63.5 Sessile colonic polyp ~11/2020 K63.5 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 Itching L29.9 CKD (chronic kidney disease) stage 3, GFR 30-59 ml/min N18.30 Screening for colon cancer Z12.11 Medical History Medical History Adenomatous colon polyp Asthma, chronic Degenerative joint disease Gout History of dog bite History of nephrolithiasis Hyperlipidemia Hypertension Nephrolithiasis Surgical History Surgical History Hx of colonoscopy (~11/2020) Tobacco Smoking/Tobacco Use Status: Former Tobacco Use Alcohol Alcohol Intake: current Alcohol intake frequency: holidays/special occasions only Substance Use Substance use type: does not use Vital Signs and Lab Results Vital Signs Most Recent Vital Signs in EMR: Most Recent Vital Signs Temp Pulse Resp BP Pulse Ox 36.5 C 63 16 152/76 H 97 11/20/21 10:32 11/20/21 10:32 11/20/21 10:32 11/20/21 10:32 11/20/21 10:32 Lab Results Blood Type / Crossmatch: No Data to Display Complete Blood Count: No Data to Display Complete Metabolic Panel: No Data to Display Liver Function Panel: No Data to Display Coagulation Panel: No Data to Display Cardiac Panel: No Data to Display Arterial Blood Gas: No Data to Display Venous Blood Gas: No Data to Display Pancreas Panel: No Data to Display Thyroid Panel: No Data to Display Infectious Disease: No Data to Display Blood Cultures: No Data to Display Toxicology Panel: No Data to Display Imaging and Studies Imaging and Studies Study information below may be from another EMR and interpreted by another provider. Please see original notes in EMR for more complete details. Echocardiogram Summary: Conclusion Left Ventricle : The left ventricle is normal size. The left ventricular ejection fraction is within the normal range. There is normal left ventricular wall thickness. There is normal LV segmental wall motion. The left ventricular diastolic function is normal. LVEF is 60%. Right Ventricle : The right ventricle is normal size. The right ventricular systolic function is normal. The RVSP is 25.5mmHg. Atria : The left atrium size is normal. The right atrium size is normal. Aortic Valve : The aortic valve is normal in structure. Aortic valve is trileaflet. Mild aortic regurgitation. There is no aortic valvular stenosis. Great Vessels : The aortic root is normal in size. The ascending aorta is normal in size. Aortic arch is not well visualized. IVC is normal in size and collapses >50% with inspiration. Please see remainder of study for further details. 09/11/20 Anesthesia Assessment and Plan Anesthesia History Personal History: No History of Anesthesia Complications Family History: No Family History of Anesthesia Complications Exercise Tolerance Exercise Tolerance: Metabolic Equivalents>4 Pertinent Negatives Pertinent Negatives: No Symptoms of GERD Cardiac & Pulmonary Exam Cardiac Exam: Heart Murmur Present Pulmonary Exam: Clear Bilateral Breath Sounds Implantable Cardiac Device Does patient have a Pacemaker or an ICD?: No Airway Exam Known Difficult Airway: No Mallampati Class: 3 Mouth Opening: Normal (> 3cm) Thyromental Distance: Greater than 3 cm Neck Range of Motion: Full ROM Neck Circumference: Normal Teeth Condition: Normal Dentition and Generalized Poor Dentition ASA Classification ASA Score: ASA 2 Emergency Case?: No NPO Status NPO Status: NPO Clears >2 hours, Solids >8 hours Anesthesia Plan Resuscitation Status: Full Code Anesthesia Technique: General Anesthesia Airway Planned: Natural Airway Monitors Used: Standard Monitors
[2021-11-20 11:53] VITALS: BMI 25.7
[2021-11-20] MEDS: Lidocaine 1% Pres-Free 30 ML VIAL (12:15)
[2021-11-20 12:25] VITALS: BP 142/70; PULSE 54; RESP 16; TEMP 36.6; O2SAT 95
[2021-11-20 13:00] VITALS: BP 156/82; PULSE 66; RESP 16; TEMP 36.5; O2SAT 98
--- NOTE | 2021-11-20 13:47 | W.ANESPOSTOP ---
Postoperative Evaluation Date, Time and Location Date Performed: 11/20/21 Time Performed: 13:48 Patient Location: Day Surgery Unit Vital Signs Most Recent Imported Vital Signs: Most Recent Vital Signs Temp Pulse Resp BP Pulse Ox 36.5 C 66 16 156/82 H 98 11/20/21 13:00 11/20/21 13:00 11/20/21 13:00 11/20/21 13:00 11/20/21 13:00 Pain Score Most Recent Pain Score: Most Recent Pain Score Pain Level 0 11/20/21 13:00 Assessment Mental Status: Awake (Alert & Oriented to Patient Baseline) Airway and Respiratory Function: Patent airway with normal (patient baseline) respiratory exam Cardiovascular Function: Hemodynamically Stable Hydration Status: Adequately Hydrated Nausea & Vomiting: No Nausea or Vomiting Pain: Pt. Denies Any Pain Peripheral Nerve Block: Patient did not receive a nerve block
--- NOTE | 2021-11-20 18:03 | W.PM.OP ---
Date of service: 11/20/21 Time of Service: 12:20 Operative Note Operative Note DATE OF PROCEDURE: 11/20/21 PRE-OP DIAGNOSIS: Left Ring Trigger Finger, Restricted Motion POST-OP DIAGNOSIS: same Left Ring Finger PIP stiffness PROCEDURE: Trigger Finger Release - Left Ring Finger SURGEON: Jeovanny Kitchen ANESTHESIA TYPE: General:No Airway Refer to Anesthesia Record ESTIMATED BLOOD LOSS: 0 PATHOLOGY: none sent COMPLICATIONS: None Patient was transported to: same day Patient's condition: stable Indications: I have seen Dany in clinic for symptoms of a trigger finger. His symptoms are somewhat unusual and that the finger started in a locked position rather than the initial triggering. Attempts were made in the office to inject this finger and improve his position. However, he is unable to tolerate this. The steroid injection did provide some relief but he still was unable to gain full flexion and full extension of the digit. Therefore, I discussed trigger finger release with the patient. I reviewed the risks of the procedure to include, but not limited to, bleeding, infection, pain, stiffness, incomplete release, damage to nerves or vessels, continued catching, recurrence. Despite these risks, the patient elected to proceed. Findings: There was a tightened A1 tammy which was released. The flexor tendons were inspected and the patient was able to move the finger without any catching, clicking, or locking. After release of the tammy the finger is able to passively be moved into deep flexion. However, terminal extension was still limited by about 10 degrees of the PIP joint which was similar to the middle finger as well. Procedure Description: Dany was greeted in the preoperative holding area where the correct side was identified and marked. The consent was reviewed with the patient and signed. All questions were answered. He was taken back to the operating room. The patient was placed into the supine position on the operating room table with the left arm on an arm board. All bony prominences were well padded. No prophylactic antibiotics were administered since this was a clean, elective hand surgical case. The left arm was then prepped with Chloraprep and draped in a standard fashion with stockinette and extremity drape. A timeout to confirm correct identity, side and site, procedure, allergies, anesthesia, and medical concerns was performed. A general uninstrumented airway anesthetic was then administered. The surgical site was marked as a longitudinal incision directly over the A1 tammy of the involved digit. This was confirmed with palpation during finger flexion. This area, overlying the metacarpal head, was then anesthetized with 1% Lidocaine. The patient tolerated this well and once the anesthetic had setup, the procedure began. A longitudinal incision was made through skin only, approximately 1cm. The deep tissues were dissected bluntly. Once the A1 tammy and flexor tendons were identified the soft tissue including neurovascular structures were retracted medially and laterally. There were no crossing structures over the A1 tammy. The proximal edge of the tammy was identified and the tammy was incised with tenotomy scissors. There was a release of the tendons once this was fully released. The tendons were then removed from the wound and inspected. Excess synovium was resected. The tendons were then returned and range of motion was tested passively and with the tenodesis effect. There seem to be no catching or locking of the tendons. Passively I was able to obtain full flexion which was smooth. I was able to obtain extension of the digit better than preoperative state but there was limitation of the PIP joint. This did not seem to be related to the tendon some cells and was comparable to the neighboring middle finger with a contracture of about 20 degrees of the PIP joint. The wound was then irrigated and the skin was closed with a 4-0 Nylon. This was dressed with gauze and a Conform dressing. The patient tolerated the procedure well and was returned to the Same Day Surgery area in a stable condition suffering no known complication.
== END 2021-11-20 13:30 | disposition home or self-care (01) ==
PROVIDERS: PCP Physician Assistant; Visit Provider Student in an Organized Health Care Education/Training Program
PROC: (CPT 26055; principal; 2021-11-20 13:15)
DX: M65.342 Trigger finger, left ring finger (principal); I12.9 Hypertensive chronic kidney disease with stage 1 through stage 4 chronic kidney disease, or unspecified chronic kidney disease; N18.30 Chronic kidney disease, stage 3 unspecified
CPT/HCPCS: 26055; J2704

== ENCOUNTER → 2021-11-29 09:10 | Outpatient (BNVA) | payer MEDICARE, OTHER, SELFPAY | PROVIDERS: PCP Physician Assistant; Referring Provider Physician Assistant; Visit Provider Student in an Organized Health Care Education/Training Program | DX: M65.342 Trigger finger, left ring finger (principal) ==

== ENCOUNTER → 2022-04-01 14:08 | Outpatient (BNVA) | payer MEDICARE, OTHER, SELFPAY | PROVIDERS: PCP Physician Assistant; Referring Provider Physician Assistant; Visit Provider Student in an Organized Health Care Education/Training Program | DX: M65.342 Trigger finger, left ring finger (principal); Z47.89 Encounter for other orthopedic aftercare | CPT/HCPCS: 99213 ==

== ENCOUNTER → 2022-06-10 13:20 | Outpatient (BNVA) | payer MEDICARE, OTHER, SELFPAY | PROVIDERS: PCP Physician Assistant; Referring Provider Physician Assistant; Visit Provider Student in an Organized Health Care Education/Training Program | DX: M65.342 Trigger finger, left ring finger (principal); M72.0 Palmar fascial fibromatosis [Dupuytren] | CPT/HCPCS: 99214 ==

== ENCOUNTER 2022-08-26 19:26 | Outpatient (REF) | payer MEDICARE, OTHER, SELFPAY ==
[2022-08-26 15:12] LABS: HCT 41.5 % (40.0-50.0); HGB 13.9 g/dL (13.5-17.5); MCH 31.4 pg (27.0-33.0); MCHC 33.5 % (32.0-36.0); MCV 94 fL (80-95); MPV 10.9 fL (8.0-11.0); Platelet Count 226 10^3/uL (130-400); RBC 4.42 10^6/uL (4.36-5.78); RDW 12.3 % (11.8-14.1); RDW-SD 42.6 fL; WBC 6.41 10^3/uL (4.4-10.8)
[2022-08-26 16:08] LABS: Anion Gap 7.8 mmol/L (3-11); BUN 23 mg/dL (7-18); CO2 31.2 mmol/L (21.0-32.0); CREATININE 1.7 mg/dL (0.70-1.30); Calcium 9.4 mg/dL (8.5-10.1); Calculated LDL 69 mg/dL (<100); Chloride 101 mmol/L (98-107); Cholesterol 132 mg/dL (<200); Estimated GFR 40.25 (mL/min/1.73m2); Glucose 100 mg/dL (74-106); HDL Cholesterol 46 mg/dL (40-60); Potassium 3.8 mmol/L (3.5-5.1); Sodium 140 mmol/L (136-145); Triglyceride 87 mg/dL (<150)
== END 2022-08-26 19:27 | disposition home or self-care (01) ==
LOC: NCHCN 19:26
PROVIDERS: PCP Physician Assistant; Visit Provider Physician Assistant
DX: I10 Essential (primary) hypertension (principal)
CPT/HCPCS: 80048; 80061; 85027

== ENCOUNTER 2022-12-21 16:27 | Emergency (ER) | payer MEDICARE, OTHER, SELFPAY ==
[2022-12-21 16:28] VITALS: BP 172/64; PULSE 72; RESP 15; TEMP 36.1; O2SAT 97
--- NOTE | 2022-12-21 16:29 | W.ED.GENAD ---
Discharge Plan Disposition Patient Disposition: Home Discharge Details Clinical Impression: Embedded tick of flank Primary Care Provider: Guido Woods ED Provider: Bismark Sultana Home Meds and New Rx's Prescriptions: Continued allopurinol 100 mg tablet 100 mg PO DAILY hydrochlorothiazide 25 mg tablet 25 mg PO DAILY pravastatin 20 mg tablet 20 mg PO HS lisinopril 5 mg tablet 5 mg PO DAILY doxazosin [Cardura] 2 mg tablet 4 mg PO QHS saw palmetto 450 mg capsule 900 mg PO DAILY Rx Instructions: give with food (meal/snack) atenolol 50 mg tablet 50 mg PO DAILY lidocaine HCl [Lidocaine Plus] 4 % Cream 1 applic TOPICAL BID PRN Patient Comments: 12/04/20 Recent dog attack; applying lidocaine for back pain. Discharge Instructions Additional Instructions: You were seen in the emergency department following a tick bite. You received a prophylactic dose of antibiotics which should prevent Lyme disease. As we discussed if you develop a large red rash that is more than several inches outside of the area of your tick bite please return to the emergency department. Please also return if you develop fevers anything that appears like a pimple on your back or any worsening pain in your back. For your pain please take medications as follows: 1. Take acetaminophen (Tylenol), 1,000 mg (two 500 mg tabs) every 6 hours Discharge Data Discharge Date/Time-TO BE ENTERED AT DEPARTURE: 12/21/22 16:50 HPI General Date/Time Provider Initiated Documentation: 12/21/22 16:29. HPI Narrative: MDM This is an overall very well-appearing afebrile not tachycardic 82-year-old male with embedded on left flank meeting criteria for postexposure prophylaxis against Lyme disease using 200 mg oral oxacillin x1 in the setting of tick attached what appears to be greater than 36 hours based on degree of engorgement local infection rates no contraindications to doxycycline and adult appearing deer tick. No pain out of proportion to suggest necrotizing soft tissue infection. No obvious erythema migrans to suggest Lyme disease. Not altered to suggest neuro Lyme nor Lyme meningitis. No surrounding cellulitis. Patient and I did discuss that if he develops fevers if he develops a significant red rash around the area from which his tick was removed, or if he develops any significant pain or swelling at the site of the tick bite that he should return to the emergency department. Otherwise we will proceed with empiric trial of expectant outpatient management. Chronic conditions affecting the care of the patient: CKD History obtained from an outside historian: N/A External record review: Limited [facility] EMR record Medications: Doxycycline Social determinants of health affecting disposition: N/A Management discussed with: N/A Treatment/interventions considered: N/A Response to therapies provided: N/A HPI This is an 82-year-old male arrived to the emergency department via private vehicle in the setting of a tick he noticed on his left flank earlier today around noon. Patient reports that he noticed some discomfort on his left flank last night while he was sleeping. This morning he did not think about it until he noticed the tick around noon. He reports he has not recently been outdoors. He does not have any dogs or cats in the house. He was unsure whether or not to come in but he wants this tick evaluated. He denies fevers chest pain shortness of breath nausea vomiting. He rarely drinks ethanol and denies routine tobacco and illicits. Exam General: Well-appearing in no acute distress speaking in complete sentences. Head: Normocephalic, atraumatic. Eye: Extraocular eye movements intact. No conjunctival injection. No scleral icterus. Ear, nose, mouth, throat: Grossly normal inspection. Normal voice, handling secretions normally. Neck: Trachea midline. Cardiovascular: Well-perfused distal extremities. Respiratory: Nonlabored respiration. Gastrointestinal: Nondistended abdomen. Back: On the patient's left flank there is an engorged tick with mild surrounding erythema at the tick bite. No erythema migrans. No pain out of proportion. No fluctuance. No streaking signs of infection. Musculoskeletal: No edema. Moving all 4 extremities spontaneously. Skin: Normal for age and race, grossly normal temperature and turgor. No acute rash. Neurologic: Alert and appropriate, no apparent acute deficits. Psychiatric: Mood and manner are appropriate. Grooming and personal hygiene are appropriate. Related Data Home Medications Medication Instructions Recorded Confirmed doxazosin 2 mg tablet (Cardura) 4 mg PO QHS 03/11/19 06/10/22 lisinopril 5 mg tablet 5 mg PO DAILY 03/11/19 06/10/22 allopurinol 100 mg tablet 100 mg PO DAILY 04/02/19 06/10/22 hydrochlorothiazide 25 mg tablet 25 mg PO DAILY 04/02/19 06/10/22 pravastatin 20 mg tablet 20 mg PO HS 04/02/19 06/10/22 atenolol 50 mg tablet 50 mg PO DAILY 06/27/20 06/10/22 saw palmetto 450 mg capsule 900 mg PO DAILY 06/27/20 06/10/22 lidocaine HCl 4 % topical cream 1 applic topical BID PRN 12/04/20 06/10/22 (Lidocaine Plus) Allergies Allergy/AdvReac Type Severity Reaction Status Date / Time No Known Allergies Allergy Verified 12/21/22 16:39 PFSH All Active Problems (Updated 12/21/22 @ 16:45 by Bismark Sultana MD) Embedded tick of flank (Acute) Dupuytren's contracture of left hand (Acute) Neck mass (Acute) Hyperplastic colon polyp (Acute ~11/2020) Sessile colonic polyp (Acute ~11/2020) High grade dysplasia in colonic adenoma (Acute) Ocular migraine (Acute) Itching (Acute) CKD (chronic kidney disease) stage 3, GFR 30-59 ml/min (Acute) Screening for colon cancer (Acute) Medical History (Updated 12/21/22 @ 16:45 by Bismark Sultana MD) History of dog bite History of nephrolithiasis Gout Hyperlipidemia Hypertension Asthma, chronic Degenerative joint disease Adenomatous colon polyp Nephrolithiasis Surgical History (Updated 11/29/21 @ 09:38 by NICOLE Mays) Trigger finger, left ring finger Injected: 11/15/2021 S/P Release: 11/20/2021 Hx of colonoscopy (~11/2020) Social History Smoking/Tobacco Use Status: Former Tobacco Use Quit Date: 02/10/89 Smoking risk assessment performed?: Yes Alcohol Intake: current Alcohol Intake frequency: holidays/special occasions only Drug use: Never Substance use type: does not use Do you feel safe at home: Yes Do you feel safe in your relationship?: Yes
[2022-12-21] MEDS: Doxycycline Hyclate 100 MG CAP 200 MG PO (16:45)
== END 2022-12-21 16:50 | disposition home or self-care (01) ==
PROVIDERS: Emergency Provider Emergency Medicine; PCP Physician Assistant
DX: S20.462A Insect bite (nonvenomous) of left back wall of thorax, initial encounter (principal); W57.XXXA Bitten or stung by nonvenomous insect and other nonvenomous arthropods, initial encounter
CPT/HCPCS: 99283; 99284

== ENCOUNTER → 2023-09-17 10:47 | Outpatient (CLI) | payer MEDICARE, SELFPAY ==
--- NOTE | 2023-09-17 | DI.RAD_ITS ---
Exam(s) XR THORACIC SPINE COMPLETE EXAM: XR THORACIC SPINE COMPLETE CLINICAL HISTORY: DISTANT TRAUMA,THORACIC SPINE PAIN,M54.6. TECHNIQUE: 2D digital imaging was performed. COMPARISON: No exams were available for comparison FINDINGS: 3 views No evidence of fracture, listhesis, nor abnormal widening of the paraspinal lines. There is no scoli osis evident. No prominent disc space narrowing. No osseous lesions. Thoracic aortic arch is calcified. IMPRESSION: No significant radiographic findings in the thoracic spinal column. DATA REPOSITORY: RADIATION DOSE DELIVERED:
== END ==
PROVIDERS: PCP Physician Assistant; Visit Provider Physician Assistant
DX: M54.6 Pain in thoracic spine (principal)
CPT/HCPCS: 72072

== ENCOUNTER → 2024-09-09 09:18 | Outpatient (BNVA) | payer MEDICARE, SELFPAY | PROVIDERS: PCP Physician Assistant; Referring Provider Physician Assistant; Visit Provider Physical Therapy Assistant | DX: Z12.11 Encounter for screening for malignant neoplasm of colon (principal); Z86.0102 Personal history of hyperplastic colon polyps; Z86.0109 Personal history of other colon polyps; E78.5 Hyperlipidemia, unspecified; I10 Essential (primary) hypertension; J45.909 Unspecified asthma, uncomplicated; N18.9 Chronic kidney disease, unspecified | CPT/HCPCS: S0285 ==

== ENCOUNTER 2024-09-22 14:42 | Outpatient (REF) | payer MEDICARE, SELFPAY ==
[2024-09-22 15:30] LABS: HCT 40.8 % (40.0-50.0); HGB 13.9 g/dL (13.5-17.5); MCH 32.2 pg (27.0-33.0); MCHC 34.1 % (32.0-36.0); MCV 94 fL (80-95); MPV 10.8 fL (8.0-11.0); Platelet Count 221 10^3/uL (130-400); RBC 4.32 10^6/uL (4.36-5.78); RDW 13.0 % (11.8-14.1); RDW-SD 45.1 fL; WBC 6.76 10^3/uL (4.4-10.8)
[2024-09-22 17:00] LABS: ALT 19 U/L (16-63); AST 17 U/L (15-37); Albumin 3.9 g/dL (3.4-5.0); Alkaline Phosphatase 56 U/L (46-116); Anion Gap 9.6 mmol/L (3-11); BUN 24 mg/dL (7-18); Bilirubin, Total 1.0 mg/dL (0.2-1.0); CO2 28.4 mmol/L (21.0-32.0); Calcium 9.3 mg/dL (8.5-10.1); Calculated LDL 78 mg/dL (<100); Chloride 103 mmol/L (98-107); Cholesterol 149 mg/dL (<200); Estimated GFR 46.19 (mL/min/1.73m2); Glucose 94 mg/dL (74-106); HDL Cholesterol 57 mg/dL (>or=40); Potassium 4.0 mmol/L (3.5-5.1); Sodium 141 mmol/L (136-145); Total Protein 7.0 g/dL (6.4-8.2); Triglyceride 71 mg/dL (<150)
== END 2024-09-22 14:43 | disposition home or self-care (01) ==
LOC: NCHCN 14:42
PROVIDERS: PCP Physician Assistant; Visit Provider Physician Assistant
DX: I10 Essential (primary) hypertension (principal)
CPT/HCPCS: 80053; 80061; 85027

== ENCOUNTER 2024-10-08 08:24 | Day surgery (SDC) | payer MEDICARE, SELFPAY ==
--- NOTE | 2024-10-07 18:59 | W.ANESPRE ---
General Info Date of Service Date Performed: 10/08/24 Height: 5 ft 10.5 in Weight: 75.296 kg Body Mass Index (BMI): 23.4 Surgical Procedure: Operation Date: 10/08/24 09:35 Proposed Procedure Side Surgeon bertha Hope MD Meds Allergies and Home Medications Allergies Allergy/AdvReac Type Severity Reaction Status Date / Time No Known Allergies Allergy Verified 10/08/24 08:51 Home Medication ?Medication ?Instructions ?Recorded doxazosin 2 mg tablet (Cardura) 4 mg PO QHS 03/11/19 allopurinol 100 mg tablet 100 mg PO DAILY 04/02/19 hydrochlorothiazide 25 mg tablet 25 mg PO DAILY 04/02/19 pravastatin 20 mg tablet 20 mg PO HS 04/02/19 saw palmetto 450 mg capsule 900 mg PO DAILY 06/27/20 doxazosin 4 mg tablet 4 mg PO QHS 06/30/24 lisinopril 10 mg tablet 10 mg PO DAILY 06/30/24 Current Visit Medications: Current Medications Generic Name Dose Route Start Last Admin Trade Name Keyonq PRN Reason Stop Dose Admin Ringer's Solution 1,000 mls @ 80 mls/hr 10/08/24 06:00 IV 10/08/24 23:59 INFUSION KAMLESH IV Miscellaneous Supplies 1 each 10/08/24 06:00 Iv Access IV 10/08/24 23:59 DIRECTED KAMLESH Sodium Chloride 0 ml 10/08/24 06:00 Normal Saline Flush 10 Ml Syr IV 10/08/24 23:59 PRN PRN Sodium Chloride 0 ml 10/08/24 06:00 Normal Saline 10 Ml Vial IJ 10/08/24 23:59 DIRECTED PRN Sterile Water 0 ml 10/08/24 06:00 Water,Injection,Sterile 10 Ml Vial IJ 10/08/24 23:59 DIRECTED PRN PFSH Active Problems Active Problems: Problem Status Onset Code Dupuytren's contracture of left hand Acute M72.0 Neck mass Acute R22.1 Ocular migraine Acute G43.109 Itching Acute L29.9 CKD (chronic kidney disease) stage 3, GFR 30-59 ml/min Acute N18.30 Screening for colon cancer Acute Z12.11 Medical History Medical History H/O cardiac murmur Angular cheilitis High grade dysplasia in colonic adenoma Sessile colonic polyp (~11/2020) Hyperplastic colon polyp (~11/2020) History of dog bite History of nephrolithiasis Gout Hyperlipidemia Hypertension Asthma, chronic Degenerative joint disease Adenomatous colon polyp Nephrolithiasis Surgical History Surgical History Trigger finger, left ring finger Injected: 11/15/2021 S/P Release: 11/20/2021 Hx of colonoscopy (~11/2020) Tobacco Smoking/Tobacco Use Status: Former Tobacco Use Alcohol Alcohol Intake: current Alcohol intake frequency: a few times a month Substance Use Substance use: Never Substance use type: does not use Vital Signs and Lab Results Vital Signs Most Recent Vital Signs in EMR: Temp Pulse Resp BP Pulse Ox 36.1 C L 82 18 148/75 H 99 10/08/24 08:26 10/08/24 08:26 10/08/24 08:26 10/08/24 08:26 10/08/24 08:26 Lab Results Complete Blood Count: WBC, (4.4-10.8) 6.76 10^3/uL 09/22/24, 10:50 RBC, (4.36-5.78) 4.32 10^6/uL L 09/22/24, 10:50 Hgb, (13.5-17.5) 13.9 g/dL 09/22/24, 10:50 Hct, (40.0-50.0) 40.8 % 09/22/24, 10:50 Plt Count, (130-400) 221 10^3/uL 09/22/24, 10:50 Complete Metabolic Panel: Sodium, (136-145) 141 mmol/L 09/22/24, 10:50 Potassium, (3.5-5.1) 4.0 mmol/L 09/22/24, 10:50 Chloride, (98-107) 103 mmol/L 09/22/24, 10:50 Carbon Dioxide, (21.0-32.0) 28.4 mmol/L 09/22/24, 10:50 BUN, (7-18) 24 mg/dL H 09/22/24, 10:50 Creatinine, (0.70-1.30) 1.5 mg/dL H 09/22/24, 10:50 Est GFR (CKD-EPI 2020), (mL/min/1.73m2) 46.19 09/22/24, 10:50 Calcium, (8.5-10.1) 9.3 mg/dL 09/22/24, 10:50 Albumin, (3.4-5.0) 3.9 g/dL 09/22/24, 10:50 Glucose, (74-106) 94 mg/dL 09/22/24, 10:50 Liver Function Panel: ALT, (16-63) 19 U/L 09/22/24, 10:50 AST, (15-37) 17 U/L 09/22/24, 10:50 Imaging and Studies Imaging and Studies Study information below may be from another EMR and interpreted by another provider. Please see original notes in EMR for more complete details. Echocardiogram Summary: Conclusion Left Ventricle : The left ventricle is normal size. The left ventricular ejection fraction is within the normal range. There is normal left ventricular wall thickness. There is normal LV segmental wall motion. The left ventricular diastolic function is normal. LVEF is 60%. Right Ventricle : The right ventricle is normal size. The right ventricular systolic function is normal. The RVSP is 25.5mmHg. Atria : The left atrium size is normal. The right atrium size is normal. Aortic Valve : The aortic valve is normal in structure. Aortic valve is trileaflet. Mild aortic regurgitation. There is no aortic valvular stenosis. Great Vessels : The aortic root is normal in size. The ascending aorta is normal in size. Aortic arch is not well visualized. IVC is normal in size and collapses >50% with inspiration. Please see remainder of study for further details. 09/11/20 Anesthesia Assessment and Plan Anesthesia History Personal History: No History of Anesthesia Complications Family History: No Family History of Anesthesia Complications Exercise Tolerance Exercise Tolerance: Metabolic Equivalents>4 Cardiac & Pulmonary Exam Cardiac Exam: Normal S1/S2 Heart Sounds Pulmonary Exam: Clear Bilateral Breath Sounds Implantable Cardiac Device Does patient have a Pacemaker or an ICD?: No Airway Exam Known Difficult Airway: No Mallampati Class: 3 Mouth Opening: Normal (> 3cm) Thyromental Distance: Greater than 3 cm Neck Range of Motion: Full ROM Neck Circumference: Normal Teeth Condition: Normal Dentition and Generalized Poor Dentition ASA Classification ASA Score: ASA 2 Emergency Case?: No NPO Status NPO Status: NPO Clears >2 hours, Solids >8 hours Anesthesia Plan Resuscitation Status: Full Code Anesthesia Technique: General Anesthesia Airway Planned: Natural Airway Monitors Used: Standard Monitors Preoperative Comments:: 84 yo male for colo. Sig PMHx: HTN (HCTZ, lisinopril), asthma, former smoker. Previous Anes: - trigger finger, prop, natural airway, no issues. - colo, prop, natural airway, no issues.
--- NOTE | 2024-10-07 19:09 | W.PM.DSUDISC ---
Date of service: 10/08/24 Discharge Plan Disposition Patient Disposition: Home Condition: Good Discharge Details Reason For Visit: screening colonoscopy Attending Provider: Shay Hope Primary Care Provider: Guido Woods Home Meds and New Rx's Prescriptions: Continued allopurinol 100 mg tablet 100 mg PO DAILY hydrochlorothiazide 25 mg tablet 25 mg PO DAILY pravastatin 20 mg tablet 20 mg PO HS doxazosin [Cardura] 2 mg tablet 4 mg PO QHS saw palmetto 450 mg capsule 900 mg PO DAILY Rx Instructions: give with food (meal/snack) doxazosin 4 mg tablet 4 mg PO QHS lisinopril 10 mg tablet 10 mg PO DAILY Discontinued bisacodyl [Dulcolax (bisacodyl)] 5 mg tablet,delayed release (DR/EC) 5 mg PO ONCE Qty: 4 0RF Rx Instructions: Take per colonoscopy instructions provided by ordering providers office polyethylene glycol 3350 17 gram/dose powder 17 g PO ONCE Qty: 238 0RF Rx Instructions: Take per colonoscopy instructions provided by ordering providers office Discharge Instructions Instructions: Colon polyps, Diverticulosis Additional Instructions: Dany, it was great meeting you today, and I hope you feel well after the procedure. Things went very smoothly. I did find, I removed 2 polyps today. 1 of these is a little larger than I would like to see, but none of the other features are particularly worrisome to the naked eye. I took both of these polyps out today, and I will send them to the pathologist for their review. Polyps, different types with different levels of risk associated with them, and await to see what the report is before making any other recommendations. Those results will take about a week or so to get back, but once my office has them, we will be in touch. Incidentally, you also have some diverticulosis. These are weak spots in the muscular layer of the colon wall. I find diverticulosis in most patients that I perform colonoscopies on. Hopefully, years never bother you. I will attach some basic information here about diverticular management as a whole. If you need anything or have any questions at all, please do not hesitate to ask, otherwise I will be in touch once I have the polyp report. 1. If tolerated, consume a soft, low fiber diet for 1-2 days. 2[address] Do not drive, drink alcohol, operate machinery, make critical decisions, or do activities that require coordination or balance for 24 hours. 3. Because air was put into your colon during the procedure, expelling air from your rectum (passing gas or farting) is normal. 4. You may not have a bowel movement for 1-3 days because of the colonoscopy prep. This is normal. 5. Go directly to the emergency room if you notice any of the following: Develop chills (warm to touch), or if you have a thermometer and your temperature is above 101 Difficulty breathing or difficultly swallowing Persistent vomiting Severe abdominal pain, other than gas cramps Severe chest pain Black, tarry stools Any bleeding ? exceeding one tablespoon 6. Call your physician if the site where your intravenous was started becomes red, swollen, painful, and warm to touch. 7. Your physician has reviewed your pre-procedure medications. Please continue to take those medications as previously ordered. You will be given specific information/education regarding any changes to your medications before leaving. Activity:: Activity as Tolerated Diet:: As Tolerated Discharge Orders Discharge Orders: Discharge Order (Routine); Ordered 10/07/24 Ordered By: Shay Hope DS: Diagnosis Discharge Diagnosis (1) Screening for colon cancer: Status: Acute Asessment and Plan: Follow-up on polypectomy results
--- NOTE | 2024-10-07 19:20 | COLE_ITS ---
Date of service: 10/08/24 Time of Service: 10:04 Colonoscopy Report Date of procedure: 10/08/24 Pre-op diagnosis general: screening colonoscopy Post-op diagnosis procedure note: other (Colon polyps, diverticulosis) Procedure: colonoscopy with polypectomy Surgeon: Shay Hope Anesthesia Type: General:No Airway Estimated blood loss (mL): 5 Pathology: other (1 cm pedunculated rectal polyp, 0.25 cm pedunculated polyp at 30 cm) Complications: None Disposition: same day Indications: Dany is an 84 year old man who needs his next screening colonoscopy Prep: Miralax/Dulcolax Procedure Start Time: 09:35 Procedure End Time: 09:56 Retraction Time: 9 Findings: 1 cm pedunculated rectal polyp, 0.25 cm pedunculated polyp at 30 cm Procedure Description: After the induction of anesthesia, and with the patient in left lateral decubi tus position, I began by performing an external anorectal exam.? Perineum and skin were normal, as was the anal verge.? There was no evidence of external hemorrhoids.? Next, I performed a digital rectal exam.? I did that appreciate any abnormal findings.? Next, I advanced a colonoscope into the rectal vault. There is a 1 cm pedunculated polyp in the lower portion of the rectal vault. This was removed with a energize snare polypectomy. There is a small amount of bleeding from the base that was easily cauterized.? Using irrigation, I then advanced the colonoscope beyond the rectal folds and into the sigmoid colon before advancing towards the cecum.? There is sigmoid diverticulosis.? The scope was noted to be in the cecum by identification of the ileocecal valve and appendiceal orifice.? I then began withdrawing the colonoscope using repeated irrigation as necessary for full evaluation of the colonic mucosa. Around 30 cm from the anal verge was another polyp. This was much smaller, perhaps 0.25 cm. This was also a bit pedunculated. This was removed with cold snare polypectomy without any difficulty. There was minimal bleeding. ?Once the scope was withdrawn to the level of the rectum, great care was taken to examine portions of the rectal folds.? Finally, the scope was withdrawn and the patient was brought to the same-day surgery recovery unit as the anesthetic wore off. ?The findings and instructions were shared with the patient prior to discharge. Easton Bowel Prep Easton Bowel Prep Right Colon: 3 Left Colon: 3 Transverse Colon: 3 Total Score: 9
[2024-10-08 08:26] VITALS: BP 148/75; PULSE 82; RESP 18; TEMP 36.1; O2SAT 99
[2024-10-08] MEDS: Lactated Ringers 1,000 ML 80 ML IV (09:02)
[2024-10-08 09:05] VITALS: BMI 23.4
--- NOTE | 2024-10-08 09:40 | BOWEL_PTH ---
PATIENT: Dany Hearn LOC: [facility] U#:[id number] AGE/SX: 84/M ROOM: RE10/08/[address]: Shay Hope MD : 1940 BED: DIS: 10/08/2024 SPEC #: [id number] RECD: 10/08/24 12:32 STATUS: DAMION REQ #: [id number] LUIS EDUARDO: 10/08/24 09:[address]: Shay Hope DEPT: Surgical Specimen RECD BY: Bhumika Rajput ENTERED: 10/08/24 12:33 SP TYPE: Bowel OTHR DR: Guido Woods Tissues: 1 - BIOPSY BOWEL 2 - BIOPSY BOWEL Procedures: GROSS AND MICRO LEVEL 4 Comments: [id number]
[2024-10-08 10:02] VITALS: BP 97/67; PULSE 71; RESP 18; TEMP 36.2; O2SAT 97
[2024-10-08 10:32] VITALS: BP 138/77; PULSE 72; RESP 18; TEMP 36.4; O2SAT 99
--- NOTE | 2024-10-08 10:42 | W.ANESPOSTOP ---
Postoperative Evaluation Date, Time and Location Date Performed: 10/08/24 Time Performed: 10:20 Patient Location: Day Surgery Unit Vital Signs Most Recent Imported Vital Signs: Most Recent Vital Signs Temp Pulse Resp BP Pulse Ox 36.4 C L 72 18 138/77 99 10/08/24 10:32 10/08/24 10:32 10/08/24 10:32 10/08/24 10:32 10/08/24 10:32 Pain Score Most Recent Pain Score: Most Recent Pain Score Pain Level 0 10/08/24 10:32 Assessment Mental Status: Awake (Alert & Oriented to Patient Baseline) Airway and Respiratory Function: Patent airway with normal (patient baseline) respiratory exam Cardiovascular Function: Hemodynamically Stable Hydration Status: Adequately Hydrated Nausea & Vomiting: No Nausea or Vomiting Pain: Pt. Denies Any Pain Peripheral Nerve Block: Patient did not receive a nerve block
== END 2024-10-08 11:05 | disposition home or self-care (01) ==
LOC: SUR 08:25
PROVIDERS: PCP Physician Assistant; Visit Provider Surgery
PROC: 0DJD8ZZ Inspection of Lower Intestinal Tract, Via Natural or Artificial Opening Endoscopic (ICD-10-PCS; CPT 45378; principal; 2024-10-08 09:30)
DX: Z12.11 Encounter for screening for malignant neoplasm of colon (principal); D12.5 Benign neoplasm of sigmoid colon; K62.1 Rectal polyp; K57.30 Diverticulosis of large intestine without perforation or abscess without bleeding; I10 Essential (primary) hypertension; J45.909 Unspecified asthma, uncomplicated; Z87.891 Personal history of nicotine dependence
CPT/HCPCS: 45385; 88305; J2704